=== PATIENT | male | born 1960 | race Caucasian/White ===

== ENCOUNTER 2022-01-12 19:32 | Inpatient (IN) | payer OTHER ==
[~2022-01-12] VITALS: Ht 175.3 cm; Wt 74.4 kg
[2022-01-12 19:35] VITALS: BP_SYST 161
--- NOTE | 2022-01-12 19:35 | NUR ---
BROUGHT IN BY [facility], PLACED IN BED #6 AND TRIAGED. REPORT GIVEN TO SUMA
--- NOTE | 2022-01-12 20:20 | NUR ---
MAI Hairston at bedside examining patient.
[2022-01-12] MEDS ORDERED: levETIRAcetam 1,000 MG in NS 90 ML IV ONE (20:30)
--- NOTE | 2022-01-12 20:41 | NUR ---
DR LOWE AT BESIDE INSERTING GTUBE.
--- NOTE | 2022-01-12 20:45 | NUR ---
MARTIN CATHETER WAS INSERTED ON PT, TOLERATED WELL. NO TRAUMA TO PENIS, NO BLEEDING. PROPER FLOW OF URINE NOTED.
[2022-01-12 21:07] LABS: BASOPHILS % (AUTO) 0.3 % (0.0-2.0); EOSINOPHILS # (AUTO) 0.2 K/uL (0.0-0.4); HEMATOCRIT 31.7 % (36-54); HEMOGLOBIN 10.6 g/dL (14.0-18.0); LYMPHOCYTES # (AUTO) 1.2 K/uL (1.0-5.5); LYMPHOCYTES % (AUTO) 13.5 % (20.5-51.5); MEAN CORPUSCULAR HEMOGLOBIN 32 pg (27-31); MEAN CORPUSCULAR HGB CONC 33 % (32-36); MEAN CORPUSCULAR VOLUME 95 fL (79.0-98.0); MONOCYTES # (AUTO) 0.6 K/uL (0.0-1.0); MONOCYTES % (AUTO) 6.6 % (1.7-9.3); NEUTROPHILS # (AUTO) 6.8 K/uL (1.8-7.7); NEUTROPHILS % (AUTO) 77.6 % (40.0-70.0); PLATELET COUNT (AUTO) 197 K/uL (130-430); RED BLOOD CELL COUNT(AUTO) 3.34 MIL/uL (4.2-6.2); RED CELL DISTRIBUTION WIDTH 15.2 % (9.0-15.0); WHITE BLOOD COUNT (AUTO) 8.7 K/uL (4.8-10.8)
[2022-01-12 21:23] LABS: CALCIUM 9.8 mg/dL (8.4-11.0); CREATININE 3.67 mg/dL (0.55-1.30)
--- NOTE | 2022-01-12 21:23 | NUR ---
CALLED [facility], SPOKE WITH SATNAM. INFORMED HER THAT G-TUBE SIZE 16 SINHALA NOT AVAILABLE AT THIS FACILITY. DR LOWE PLACED A TEMPORARY MARTIN CATHETER TO KEEP THE OPENING FROM CLOSING. I VERBALIZED IF PATIENT CAN RETURN TO THEIR FACILITY AND BE TRANSFERED OUT TOMORROW MORNING TO ANOTHER HOSPITAL. PER SATNAM WILL TALK TO NURSING SANDING MACHINE OPERATOR OR TENDER AND WILL CALL BACK WITH RESPONSE.
[2022-01-12 21:24] LABS: BILIRUBIN,URINE NEGATIVE (NEGATIVE); BLOOD, URINE 1+ (NEGATIVE); COLOR,URINE YELLOW (YELLOW); GLUCOSE,URINE NEGATIVE (NEGATIVE); KETONES,URINE NEGATIVE (NEGATIVE); LEUKOCYTE ESTERASE ,URINE 1+ (NEGATIVE); NITRITE, URINE NEGATIVE (NEGATIVE); PROTEIN URINE 2+ (NEGATIVE); UROBILINOGEN,URINE 0.2 (0.2-1.0)
[2022-01-12 21:26] LABS: CLARITY/URINE SLIGHTLY HAZY (CLEAR)
--- NOTE | 2022-01-12 21:34 | NUR ---
EVERETT CALLED BACK FROM [facility] STATED, OK TO SEND THE PT BACK. PER FACILITY REQUESTED TO LEAVE HEP LOCK IN PLACE SO MEDICATION CAN BE ADMINISTERED. DR LOWE AWARE OF SITUATION.
[2022-01-12 21:37] LABS: ALBUMIN 3.3 g/dL (3.4-4.8); TOTAL BILIRUBIN 0.5 mg/dL (0.0-1.0)
[2022-01-12] MEDS ORDERED: FAMO-132 PO (21:38)
[2022-01-12] MEDS ORDERED: PRED20TA PO (21:38)
[2022-01-12] MEDS ORDERED: EPIN0.3P3 IM (21:38)
[2022-01-12] MEDS ORDERED: BEN50 PO (21:38)
[2022-01-12] MEDS ORDERED: NACL 0.9% 1,000 ML IV ONE ×2 (22:00→23:45)
[2022-01-12] MEDS ORDERED: cefTRIAXone 1 GM IVPB PREMIX 50 ML IV ONE (22:00)
[2022-01-12 22:14] LABS: BACTERIA,URINE FEW /HPF (None Seen)
[2022-01-12 22:15] LABS: MUCUS,URINE 1+ /LPF (None Seen); YEAST,URINE Few /HPF (None Seen)
--- NOTE | 2022-01-12 23:40 | NUR ---
DR TERRELL CALLED TO GIVE ORDERS FOR PT VIA TELEPHONE. READ BACK AND VERBALIZED CORRECT ORDERS GIVEN.
[2022-01-12] MEDS ORDERED: LORazepam 2 MG/ML VIAL IVP PRN (23:45)
[2022-01-12] MEDS ORDERED: VANCOMYCIN HCL 1,000 MG in NS 250 ML IV ONE (23:45)
--- NOTE | 2022-01-12 23:47 | NUR ---
Note lisavladimir in EDM - 01/12/22 at 2357 by [email or web address] Admit bed requested Patient will be admitted to care of . Admitted to unit. Diagnosis Inpatient (Yes or No) Observation (Yes or No) Orientation concerns or request close to nursing station (Yes or No) Covid Status On vent or bipap Isolation requirements Needs a sitter From Home (Yes or if No enter name of facility) Requires Dialysis (Yes or No) Med Rec Completed (Yes of No)
--- NOTE | 2022-01-12 23:57 | NUR ---
Note lisavladimir in ED - 01/13/22 at 0016 by [email or web address] Admit bed requested Patient will be admitted to care of NIDHI Robins. Admitted to unit. Diagnosis Inpatient (Yes or No) Observation (Yes or No) Orientation concerns or request close to nursing station (Yes or No) Covid Status On vent or bipap Isolation requirements Needs a sitter From Home (Yes or if No enter name of facility) Requires Dialysis (Yes or No) Med Rec Completed (Yes of No)
[2022-01-13] VITALS (7 sets, daily range): BP systolic 100–142
--- NOTE | 2022-01-13 00:16 | NUR ---
Admit bed requested Patient will be admitted to care of NIDHI Gibson. Admitted to unit. Diagnosis TELEMETRY Inpatient (Yes or No) YES Observation (Yes or No) NO Orientation concerns or request close to nursing station (Yes or No) NO Covid Status NEGATIVE On vent or bipap NO Isolation requirements NO Needs a sitter NO From Home (Yes or if No enter name of facility) [facility] Requires Dialysis (Yes or No) YES Med Rec Completed (Yes of No) YES
--- NOTE | 2022-01-13 00:56 | NUR ---
PT WAS TRANSFERED TO BED 117A VIA BED TOLERATED WELL, PT AWAKE, NON VERBAL. PT ACCOMPANIED BY NURSE AND SHAKILA. JERMAN RN AT BEDSIDE TO TAKE REPORT. NO DISTRESS NOTED, IV FLUIDS RUNNING ON RIGHT WRIST.
--- NOTE | 2022-01-13 01:00 | NUR ---
ADMISSION NOTE Received patient from ER via gurney. Patient admitted with diagnosis of SEIZURES, UTI. Patient is awake, alert, oriented X 0. Patient oriented to hospital room, call light, toileting, pain management and safety-teach back done. Patient informed that that their room number is 124A. Personal belongings checked and Belongings List documented. Call light within reach.
[2022-01-13] MEDS ORDERED: VANCOMYCIN HCL 1000 MG/VIAL IV ONE (01:18)
[2022-01-13] MEDS ORDERED: ACET325T53 GT ×2 (01:52)
[2022-01-13] MEDS ORDERED: FOLI-43 GT (01:52)
[2022-01-13] MEDS ORDERED: NEPH GT (01:52)
[2022-01-13] MEDS ORDERED: DOCU250C75 GT (01:52)
[2022-01-13] MEDS ORDERED: ASPI-989 GT (01:52)
[2022-01-13] MEDS ORDERED: ALBU0.63 NEB (01:52)
[2022-01-13] MEDS ORDERED: SEVE800T8 GT (01:52)
[2022-01-13] MEDS ORDERED: LIP40 GT (01:52)
[2022-01-13] MEDS ORDERED: VITD2000 GT (01:52)
[2022-01-13] MEDS ORDERED: CARV3.1246 GT (01:52)
[2022-01-13] MEDS ORDERED: FER300L GT (01:52)
[2022-01-13] MEDS ORDERED: OMEP20CA15 GT (01:52)
[2022-01-13] MEDS ORDERED: LEVE100S GT (01:52)
--- NOTE | 2022-01-13 03:20 | NUR ---
Consultation Paged Reason for Consultation: UTI Was consult called: Y Person who was notified: [place] Consulting Physician: Rufino Still Ordering Physician: Dr. Olvera
--- NOTE | 2022-01-13 04:28 | NUR ---
Kept pt clean and dry.Repositioned pt.
--- NOTE | 2022-01-13 04:53 | NUR ---
Consultation Paged Reason for Consultation: Seizures Was consult called: Y Person who was notified: Dr. Luz through text messae Consulting Physician: Aris Dubois Ordering Physician: Dr. Olvera
--- NOTE | 2022-01-13 06:20 | NUR ---
ATTEMPTED TO CALL MD TERRELL TO GET AN ORDER FOR THE COVID PCR BUT NO ANSWER.LEFT A VOICEMAIL;AWAITING FOR CALL BACK.
[2022-01-13 08:00] LABS: BASOPHILS # (AUTO) 0.1 K/uL (0.0-0.2); BASOPHILS % (AUTO) 0.7 % (0.0-2.0); EOSINOPHILS # (AUTO) 0.2 K/uL (0.0-0.4); EOSINOPHILS % (AUTO) 2.3 % (0.0-4.0); HEMATOCRIT 30.8 % (36-54); HEMOGLOBIN 10.3 g/dL (14.0-18.0); LYMPHOCYTES # (AUTO) 1.4 K/uL (1.0-5.5); LYMPHOCYTES % (AUTO) 17.9 % (20.5-51.5); MEAN CORPUSCULAR HEMOGLOBIN 32 pg (27-31); MEAN CORPUSCULAR HGB CONC 33 % (32-36); MEAN CORPUSCULAR VOLUME 95 fL (79.0-98.0); MONOCYTES # (AUTO) 0.7 K/uL (0.0-1.0); NEUTROPHILS # (AUTO) 5.4 K/uL (1.8-7.7); NEUTROPHILS % (AUTO) 70.1 % (40.0-70.0); PLATELET COUNT (AUTO) 182 K/uL (130-430); RED BLOOD CELL COUNT(AUTO) 3.23 MIL/uL (4.2-6.2); RED CELL DISTRIBUTION WIDTH 15.4 % (9.0-15.0); WHITE BLOOD COUNT (AUTO) 7.6 K/uL (4.8-10.8)
--- NOTE | 2022-01-13 08:00 | NUR ---
OPENING NOTE Patient in bed resting, eyes open and alert but patient is nonverbal. No sign of distress or pain. Cm catheter in place draining yellow urine to gravity. Gtube site is left patent by temporary cm catheter placement. IV site is clean, dry, and intact. Patient supported by pillows. All needs met at this time and safety checks made.
[2022-01-13 08:38] LABS: CALCIUM 8.9 mg/dL (8.4-11.0); CREATININE 4.36 mg/dL (0.55-1.30)
[2022-01-13 08:44] LABS: ALBUMIN 3.1 g/dL (3.4-4.8); TOTAL BILIRUBIN 0.6 mg/dL (0.0-1.0)
[2022-01-13] MEDS ORDERED: cefTRIAXone 1 GM VIAL IM ONE (09:00)
--- NOTE | 2022-01-13 09:00 | NUR ---
COVID PCR PCR swab collected and taken to lab.
--- NOTE | 2022-01-13 10:36 | NUR ---
GTUBE PLACED Gtube replaced by Dr Vanessa at bedside. Patient tolerated well. Abdominal xray ordered to confirm placement.
--- NOTE | 2022-01-13 10:42 | NUR ---
BLACK STOOL Patient had a soft bowel movement, charcoal colored. Paged Dr Vanessa, spoke with Irena at the exchange. Addendum: 01/13/22 at 1056 by Lenka Caceres LVN Spoke with , new orders received.
[2022-01-13] MEDS ORDERED: FOLIC ACID 1 MG TABLET GT SCH (11:00)
[2022-01-13] MEDS ORDERED: CARVEDILOL 3.125 MG TABLET (COREG) GT ONE (11:00)
[2022-01-13] MEDS ORDERED: PANTOPRAZOLE SODIUM 40 MG/VIAL (PROTONIX) IVP ONE (11:00)
[2022-01-13] MEDS ORDERED: ACETAMINOPHEN 325 MG TABLET GT PRN ×2 (11:00)
[2022-01-13] MEDS ORDERED: OMEPRAZOLE Non-Formulary 20 MG CAPSULE.DR GT SCH (11:00)
[2022-01-13] MEDS ORDERED: ASPIRIN 325 MG TABLET GT ONE (11:00)
[2022-01-13] MEDS ORDERED: LevETIRAcetam 500 MG/5 ML UDC ORAL LIQUID GT ONE (11:00)
[2022-01-13] MEDS ORDERED: ALBUTEROL SULFATE 0.083% 2.5 MG/3 ML VIAL.NEB INH PRN (11:00)
[2022-01-13] MEDS ORDERED: ACETAMINOPHEN 325 MG TABLET GT SCH (11:00)
[2022-01-13] MEDS ORDERED: NEPHROVITE, (FOLIC ACID/VITAMIN B COMP W-C 1 TAB) GT ONE (11:00)
[2022-01-13] MEDS ORDERED: CHOLECALCIFEROL (VITAMIN D3) 2,000 UNIT TABLET GT ONE (11:00)
[2022-01-13] MEDS: SEVELAMER CARBONATE 800 MG TABLET GT SCH ×2 (12:00→17:21)
[2022-01-13] MEDS: cefTRIAXone 1 GM in D5W 50 ML IV SCH (12:38)
[2022-01-13] MEDS ORDERED: DIATR MEGLU/DIATRIZ SOD 30 ML SOLUTION PO ONE (13:26)
[2022-01-13] MEDS: FERROUS SULFATE 300 MG/5 ML UDC GT SCH ×2 (15:44→20:17)
--- NOTE | 2022-01-13 16:34 | NUR ---
ROUNDS Patient resting in bed, no sign of distress or pain. Patient's breathing is nonlabored and even on room air. Patient has been turned q2h to offload weight. All needs met at this time and safety checks made.
[2022-01-13] MEDS ORDERED: ASPIRIN 81 MG TAB.CHEW GT ONE (17:15)
--- NOTE | 2022-01-13 19:23 | NUR ---
CLOSING NOTE Patient in bed resting with eyes closed, no sign of distress or pain. Patient had a loose dark green bowel movement, cleaned and linen changed. While changing the patient, the IV access became dislodged; oncoming nurse is aware that it will need to be replaced. Breathing is nonlabored and even on room air. Patient's temperature has been trending down after receiving tylenol, most recent temperature 98.6. All needs met at this time and safety checks made. Endorsed to shift foreman nurse.
[2022-01-13] MEDS: DOCUSATE SODIUM 100 MG/10 ML UDC GT SCH (20:16)
[2022-01-13] MEDS: LevETIRAcetam 500 MG/5 ML UDC ORAL LIQUID GT SCH (20:17)
[2022-01-13] MEDS: PANTOPRAZOLE SODIUM 40 MG/VIAL (PROTONIX) IVP SCH (20:17)
[2022-01-13] MEDS: CARVEDILOL 3.125 MG TABLET (COREG) GT SCH (20:18)
[2022-01-13] MEDS: ATORVASTATIN 20 MG TABLET GT SCH (20:18)
--- NOTE | 2022-01-13 22:57 | NUR ---
Patient in bed. HOB elevated. No acute distress noted. Gtube patent and intact. Feeding started. No residual noted.Turned repositioned q2. Will continue to monitor.
[2022-01-14] VITALS: BP_SYST 141
[2022-01-14] MEDS: FERROUS SULFATE 300 MG/5 ML UDC GT SCH ×3 (04:04→20:31)
[2022-01-14 07:16] LABS: BASOPHILS % (AUTO) 0.6 % (0.0-2.0); EOSINOPHILS # (AUTO) 0.2 K/uL (0.0-0.4); EOSINOPHILS % (AUTO) 2.2 % (0.0-4.0); HEMATOCRIT 31.2 % (36-54); HEMOGLOBIN 10.5 g/dL (14.0-18.0); LYMPHOCYTES # (AUTO) 1.2 K/uL (1.0-5.5); LYMPHOCYTES % (AUTO) 16.3 % (20.5-51.5); MEAN CORPUSCULAR HEMOGLOBIN 32 pg (27-31); MEAN CORPUSCULAR HGB CONC 34 % (32-36); MEAN CORPUSCULAR VOLUME 95 fL (79.0-98.0); MONOCYTES # (AUTO) 0.6 K/uL (0.0-1.0); MONOCYTES % (AUTO) 8.7 % (1.7-9.3); NEUTROPHILS # (AUTO) 5.1 K/uL (1.8-7.7); NEUTROPHILS % (AUTO) 72.2 % (40.0-70.0); PLATELET COUNT (AUTO) 196 K/uL (130-430); RED BLOOD CELL COUNT(AUTO) 3.27 MIL/uL (4.2-6.2); RED CELL DISTRIBUTION WIDTH 15.3 % (9.0-15.0); WHITE BLOOD COUNT (AUTO) 7.1 K/uL (4.8-10.8)
[2022-01-14 07:57] LABS: CALCIUM 10.1 mg/dL (8.4-11.0); CREATININE 6.24 mg/dL (0.55-1.30)
[2022-01-14 08:00] VITALS: BP_SYST 118
--- NOTE | 2022-01-14 08:00 | NUR ---
Initial Notes Patient is AOx0. Nonverbal. No ss of distress noted. NO facial grimace noted. Breathing is even and nonlabored, on room air. Vital signs obtained, as documented. NO SOB noted. F/c draining by gravity. GT feeding running. HOB elevated. Bed is locked, alarm on, and at lowest position. call light within reach.
[2022-01-14] MEDS: DOCUSATE SODIUM 100 MG/10 ML UDC GT SCH ×2 (09:58→20:32)
[2022-01-14] MEDS: NEPHROVITE, (FOLIC ACID/VITAMIN B COMP W-C 1 TAB) GT SCH (09:59)
[2022-01-14] MEDS: CHOLECALCIFEROL (VITAMIN D3) 2,000 UNIT TABLET GT SCH (09:59)
[2022-01-14] MEDS: ASPIRIN 81 MG TAB.CHEW GT SCH (10:00)
[2022-01-14] MEDS: SEVELAMER CARBONATE 800 MG TABLET GT SCH ×3 (10:00→18:58)
[2022-01-14] MEDS: CARVEDILOL 3.125 MG TABLET (COREG) GT SCH ×2 (10:00→20:32)
[2022-01-14] MEDS: LevETIRAcetam 500 MG/5 ML UDC ORAL LIQUID GT SCH ×2 (10:13→20:32)
[2022-01-14 11:45] VITALS: BP_SYST 123
--- NOTE | 2022-01-14 12:16 | NUR ---
Notes Patient is resting, eyes closed. Aroused to name. No ss of distress noted. No facial grimace noted. New IV 22 G L FA. Seizure precautions in place, bed padded. Bed locked, alarm on, at lowest position. Call light within reach.
[2022-01-14] MEDS: cefTRIAXone 1 GM in D5W 50 ML IV SCH (12:17)
[2022-01-14] MEDS: PANTOPRAZOLE SODIUM 40 MG/VIAL (PROTONIX) IVP SCH ×2 (12:17→20:31)
--- NOTE | 2022-01-14 16:00 | NUR ---
Notes Patient has reposition and cleaned. Linens were changed, patient had bowel mvmt. Patient is a comfortable position. HOB elevated. GT feeding on. F/ C draining by gravity. Safety precautions in place and call light within reach.
[2022-01-14 16:25] VITALS: BP_SYST 114
--- NOTE | 2022-01-14 19:45 | NUR ---
Closing Notes Patient is resting, eyes closed. No ss of distress noted. No facial grimace noted. Patient is stable. HOB elevated, GT feeding running. Iv patent. F/ C draining by gravity. All needs met. Patient is stable. Bed is locked, alarm on, and at lowest position. Seizure precautions in place, bed side rails are padded. Call light within reach. Report given to SHAAN Costa.
[2022-01-14 20:00] VITALS: BP_SYST 125
[2022-01-14] MEDS: ATORVASTATIN 20 MG TABLET GT SCH (20:31)
--- NOTE | 2022-01-14 23:36 | NUR ---
Patient in bed. No acute distress noted. Turned repositioned q2. HOB elevated. Gtube intact. No residual noted.Will continue to monitor.
[2022-01-15 00:48] VITALS: BP_SYST 136
[2022-01-15] MEDS: FERROUS SULFATE 300 MG/5 ML UDC GT SCH ×3 (04:03→22:15)
[2022-01-15 08:00] VITALS: BP_SYST 123
--- NOTE | 2022-01-15 08:00 | NUR ---
Initial Note Patient is AOx0. Nonverbal. No ss of distress noted. Breathing is even and nonlabored, on room air. Obtained vital signs, as documented. No SOB noted. No facial grimace noted at this time. Patient has GT. HOB elevated. Auscultated for placement. Air bubbles heard. GT feeding running. IV patent. F/c draining by gravity. Bed is locked, alarm on, and at lowest position. Bed side rails are padded, seizure precautions in place. Call light within reach.
[2022-01-15] MEDS: LevETIRAcetam 500 MG/5 ML UDC ORAL LIQUID GT SCH ×2 (08:58→22:15)
[2022-01-15] MEDS: DOCUSATE SODIUM 100 MG/10 ML UDC GT SCH ×2 (08:58→22:15)
[2022-01-15] MEDS: SEVELAMER CARBONATE 800 MG TABLET GT SCH ×3 (08:59→18:08)
[2022-01-15] MEDS: CARVEDILOL 3.125 MG TABLET (COREG) GT SCH ×2 (08:59→22:15)
[2022-01-15] MEDS: CHOLECALCIFEROL (VITAMIN D3) 2,000 UNIT TABLET GT SCH (09:00)
[2022-01-15] MEDS: NEPHROVITE, (FOLIC ACID/VITAMIN B COMP W-C 1 TAB) GT SCH (09:00)
[2022-01-15] MEDS: ASPIRIN 81 MG TAB.CHEW GT SCH (09:00)
[2022-01-15] MEDS: PANTOPRAZOLE SODIUM 40 MG/VIAL (PROTONIX) IVP SCH ×2 (09:57→22:14)
--- NOTE | 2022-01-15 11:03 | NUR ---
CONSULTATION PAGED/CALLED Reason for Consultation: SAMMY Person Who was Notified: Spoke with Joseph Consulting Physician: Juventino. Not customer service consultant. DR. GUTIERREZ [employer] OWNER. PAGED DR. GUTIERREZ [employer] Worker Specialty: nephrology Ordering Physician: Wade
[2022-01-15] MEDS: cefTRIAXone 1 GM in D5W 50 ML IV SCH (11:41)
[2022-01-15 11:44] LABS: WHITE BLOOD COUNT (AUTO) 9.6 K/uL (4.8-10.8)
[2022-01-15 11:45] LABS: BASOPHILS % (AUTO) 0.3 % (0.0-2.0); EOSINOPHILS # (AUTO) 0.3 K/uL (0.0-0.4); HEMATOCRIT 31.2 % (36-54); LYMPHOCYTES # (AUTO) 1.3 K/uL (1.0-5.5); LYMPHOCYTES % (AUTO) 13.5 % (20.5-51.5); MEAN CORPUSCULAR HEMOGLOBIN 31 pg (27-31); MEAN CORPUSCULAR HGB CONC 32 % (32-36); MEAN CORPUSCULAR VOLUME 99 fL (79.0-98.0); MONOCYTES # (AUTO) 0.6 K/uL (0.0-1.0); MONOCYTES % (AUTO) 6.5 % (1.7-9.3); NEUTROPHILS # (AUTO) 7.3 K/uL (1.8-7.7); NEUTROPHILS % (AUTO) 76.4 % (40.0-70.0); PLATELET COUNT (AUTO) 180 K/uL (130-430); RED BLOOD CELL COUNT(AUTO) 3.17 MIL/uL (4.2-6.2); RED CELL DISTRIBUTION WIDTH 15.2 % (9.0-15.0)
[2022-01-15 11:54] LABS: CALCIUM 9.7 mg/dL (8.4-11.0); CREATININE 7.4 mg/dL (0.55-1.30); TOTAL BILIRUBIN 0.4 mg/dL (0.0-1.0)
[2022-01-15 12:00] VITALS: BP_SYST 118
--- NOTE | 2022-01-15 12:24 | NUR ---
Notes Patient is resting. No ss of distress noted. No facial grimace noted. Vital signs obtained, as documented. Patient has been cleaned and repositioned. Linens changed. HOB elevated. GT feeding running. F/c draining by gravity. Safety and seizure precautions in place. Call light within reach.
--- NOTE | 2022-01-15 13:24 | NUR ---
HD Hemodialysis started. HD nurse at bedside. Consents signed.
[2022-01-15] MEDS: ALTEPLASE 2 MG VIAL MC ONE ×2 (15:48→16:02)
[2022-01-15 16:00] VITALS: BP_SYST 87
--- NOTE | 2022-01-15 16:49 | NUR ---
HD Hemodialysis ended, 2.5 L output. Patient is stable. No distress noted. Breathing is even and nonlabored. GT feeding on. HOB elevated. Safety precautions in place and call light within reach.
--- NOTE | 2022-01-15 18:54 | NUR ---
Closing Notes Patient is resting, eyes closed. Patient is comfortable. HOB elevated. GT feeding running. No ss of distress noted. Breathing is even and nonlabored, on room air. No facial grimace noted. IV patent. F/c draining by gravity. Patient is stable. All needs met. Bed is locked, alarm on, and at lowest position. Call light within reach.
[2022-01-15 20:00] VITALS: BP_SYST 123
[2022-01-15] MEDS: ATORVASTATIN 20 MG TABLET GT SCH (22:14)
[2022-01-16] VITALS: BP_SYST 104
[2022-01-16] MEDS: FERROUS SULFATE 300 MG/5 ML UDC GT SCH ×3 (05:39→22:50)
--- NOTE | 2022-01-16 07:21 | NUR ---
report GIVEN TO NURSE LETICIA
[2022-01-16 08:00] VITALS: BP_SYST 109
--- NOTE | 2022-01-16 08:00 | NUR ---
Initial Notes Patient is resting, eyes open. Nonverbal. No ss of distress noted. Breathing is even and nonlabored, on room air. Vital signs obtained, as documented. No facial grimace noted. HOB elevated. GT feeding running. IV patent. F/c draining by gravity. Bed is locked, alarm on, and at lowest position. Side rails padded. Seizure precautions in place. Call light within reach.
[2022-01-16 08:01] LABS: ALBUMIN 3.2 g/dL (3.4-4.8); CREATININE 5.48 mg/dL (0.55-1.30); TOTAL BILIRUBIN 0.5 mg/dL (0.0-1.0)
[2022-01-16 08:20] LABS: BASOPHILS % (AUTO) 0.3 % (0.0-2.0); EOSINOPHILS # (AUTO) 0.3 K/uL (0.0-0.4); EOSINOPHILS % (AUTO) 3.3 % (0.0-4.0); HEMATOCRIT 31.2 % (36-54); HEMOGLOBIN 10.4 g/dL (14.0-18.0); LYMPHOCYTES # (AUTO) 1.5 K/uL (1.0-5.5); LYMPHOCYTES % (AUTO) 14.7 % (20.5-51.5); MEAN CORPUSCULAR HEMOGLOBIN 32 pg (27-31); MEAN CORPUSCULAR HGB CONC 33 % (32-36); MEAN CORPUSCULAR VOLUME 96 fL (79.0-98.0); MONOCYTES # (AUTO) 0.7 K/uL (0.0-1.0); NEUTROPHILS # (AUTO) 7.4 K/uL (1.8-7.7); NEUTROPHILS % (AUTO) 74.7 % (40.0-70.0); PLATELET COUNT (AUTO) 196 K/uL (130-430); RED BLOOD CELL COUNT(AUTO) 3.25 MIL/uL (4.2-6.2); RED CELL DISTRIBUTION WIDTH 15.2 % (9.0-15.0); WHITE BLOOD COUNT (AUTO) 9.9 K/uL (4.8-10.8)
[2022-01-16 08:49] LABS: CALCIUM 10.8 mg/dL (8.4-11.0)
[2022-01-16] MEDS: CHOLECALCIFEROL (VITAMIN D3) 2,000 UNIT TABLET GT SCH (08:59)
[2022-01-16] MEDS: LevETIRAcetam 500 MG/5 ML UDC ORAL LIQUID GT SCH ×2 (08:59→22:52)
[2022-01-16] MEDS: SEVELAMER CARBONATE 800 MG TABLET GT SCH ×3 (08:59→17:12)
[2022-01-16] MEDS: ASPIRIN 81 MG TAB.CHEW GT SCH (08:59)
[2022-01-16] MEDS: DOCUSATE SODIUM 100 MG/10 ML UDC GT SCH ×2 (08:59→22:51)
[2022-01-16] MEDS: NEPHROVITE, (FOLIC ACID/VITAMIN B COMP W-C 1 TAB) GT SCH (09:00)
[2022-01-16] MEDS: CARVEDILOL 3.125 MG TABLET (COREG) GT SCH ×2 (09:00→21:00)
--- NOTE | 2022-01-16 09:11 | NUR ---
NOTES AUSCULTATED FOR GT PLACEMENT, AIR BUBBLES HEARD. NO RESIDUAL. GT FEEDING RUNNING. HOB ELEVATED. NO SS OF DISTRESS NOTED. NO FACIAL GRIMACE NOTED. BED IS LOCKED, ALARM ON, AND AT LOWEST POSITION. SEIZURE PRECAUTIONS IN PLACE. CALL LIGHT WITHIN REACH.
[2022-01-16] MEDS: PANTOPRAZOLE SODIUM 40 MG/VIAL (PROTONIX) IVP SCH ×2 (09:40→22:50)
[2022-01-16] MEDS: cefTRIAXone 1 GM in D5W 50 ML IV SCH (11:19)
--- NOTE | 2022-01-16 11:32 | NUR ---
Dietitian Recommendations * Continue Nepro @ 50mL/hr Provides: 2160 kcal, 97g pro, 872 mL free water Meets: 99% of lower kcal, 102% pro needs * Update diet order to reflect current TF diet (It says "run fo 16 hrs only" * Refer to for Free water flush GS, MPH, RD Please refer to RD Assessment for more details Addendum: 01/16/22 at [address] Amended: Links added.
[2022-01-16 11:47] VITALS: BP_SYST 100
--- NOTE | 2022-01-16 12:00 | NUR ---
Notes Patient has been cleaned and repositioned. No ss of distress noted. Breathing is even and nonlabored, on room air. GT feeding running, HOB elevated. Safety and seizure precautions in place. Call light within reach.
[2022-01-16 17:00] VITALS: BP_SYST 103
--- NOTE | 2022-01-16 17:20 | NUR ---
NOTES WOUND CARE TO RIGHT THIGH DONE. NO SS OF DISTRESS NOTED. NO FACIAL GRIMACE. SAFETY PRECAUTIONS IN PLACE AND CALL LIGHT WITHIN REACH. Addendum: 01/16/22 at 1920 by Zora Quesada LVN NOTES WOUND CARE TO RIGHT THIGH DONE. SMALL AMOUNT OF YELLOW DRAINAGE NOTED. NO SS OF DISTRESS NOTED. NO FACIAL GRIMACE. SAFETY PRECAUTIONS IN PLACE AND CALL LIGHT WITHIN REACH.
--- NOTE | 2022-01-16 19:20 | NUR ---
CLOSING NOTES PATIENT IS RESTING, EYES CLOSED. NO SS OF DISTRESS NOTED. NO FACIAL GRIMACE NOTED. NO SOB. BREATHING IS EVEN AND NONLABORED, ON ROOM AIR. HOB ELEVATED. GT FEEDING RUNNING. F/C DRAINING BY GRAVITY. IV PATENT. PATIENT IS STABLE. ALL NEEDS MET. BED IS LOCKED, ALARM ON, AND AT LOWEST POSITION. SIDE RAILS PADDED. CALL LIGHT WITHIN REACH. REPORT GIVEN TO SHAAN HAY.
[2022-01-16 20:00] VITALS: BP_SYST 95
[2022-01-16] MEDS: ATORVASTATIN 20 MG TABLET GT SCH (22:51)
[2022-01-17] VITALS: BP_SYST 120
[2022-01-17] MEDS: FERROUS SULFATE 300 MG/5 ML UDC GT SCH ×3 (05:23→21:14)
--- NOTE | 2022-01-17 07:30 | NUR ---
REPORT GIVEN TO SHAAN JADE
[2022-01-17 08:00] VITALS: BP_SYST 114
--- NOTE | 2022-01-17 08:00 | NUR ---
Initial notes Patient sleeping, arouse by stimuli, nonverbal, no sign of distress/pain or SOB, breathing even and unlabored. G-tube feeding running at 50ml/hr. IV saline lock patent, no signs of infiltration. Lindsay catheter intact draining to gravity. All safety precaution secure, will continue to monitor.
[2022-01-17] MEDS: PANTOPRAZOLE SODIUM 40 MG/VIAL (PROTONIX) IVP SCH ×2 (08:12→20:53)
[2022-01-17] MEDS: ASPIRIN 81 MG TAB.CHEW GT SCH (08:13)
[2022-01-17] MEDS: DOCUSATE SODIUM 100 MG/10 ML UDC GT SCH ×2 (08:13→21:00)
[2022-01-17] MEDS: NEPHROVITE, (FOLIC ACID/VITAMIN B COMP W-C 1 TAB) GT SCH (08:13)
[2022-01-17] MEDS: CHOLECALCIFEROL (VITAMIN D3) 2,000 UNIT TABLET GT SCH (08:13)
[2022-01-17] MEDS: SEVELAMER CARBONATE 800 MG TABLET GT SCH ×3 (08:13→19:38)
[2022-01-17] MEDS: CARVEDILOL 3.125 MG TABLET (COREG) GT SCH ×2 (08:14→21:00)
[2022-01-17] MEDS: LevETIRAcetam 500 MG/5 ML UDC ORAL LIQUID GT SCH ×2 (08:16→20:40)
[2022-01-17 08:26] LABS: CALCIUM 10.3 mg/dL (8.4-11.0); CREATININE 7.35 mg/dL (0.55-1.30); PHOSPHORUS 4.1 mg/dL (2.7-4.5)
--- NOTE | 2022-01-17 10:45 | NUR ---
Discharge Planning: DCP [phone] DCP to follow up
[2022-01-17 11:20] VITALS: BP_SYST 111
[2022-01-17] MEDS: cefTRIAXone 1 GM in D5W 50 ML IV SCH (11:21)
--- NOTE | 2022-01-17 12:00 | NUR ---
Rounding Reposition every 2 hours, no signs of distress
[2022-01-17 17:38] VITALS: BP_SYST 97
--- NOTE | 2022-01-17 18:15 | NUR ---
Per dialysis nurse 2L output
--- NOTE | 2022-01-17 19:07 | NUR ---
Closing notes No change in condition,no signs pain or SOB, vital signs w/in normal, maintained safety precaution throughout my shift, will endorse to oncoming nurse.
[2022-01-17 20:00] VITALS: BP_SYST 84
[2022-01-17] MEDS: ATORVASTATIN 20 MG TABLET GT SCH (20:49)
[2022-01-17] MEDS ORDERED: ALBUMIN HUMAN 25% 50 ML IV ONE (22:00)
[2022-01-17] MEDS ORDERED: ADENOSINE 6MG/2ML VIAL IVP ONE ×2 (22:30→22:45)
[2022-01-17] MEDS ORDERED: ADENOSINE 6MG/2ML VIAL ONE (22:38)
[2022-01-18] VITALS: BP_SYST 104
--- NOTE | 2022-01-18 00:33 | NUR ---
MID-SHIFT NOTE: PT S/P HD W 2L OUT ON 01/17/22. DURING SHIFT PT HR WOULD JUMP UP TO 190'S FOR SHORT WHILE THEN DROP BACK DOWN TO LOW 100'S. PT'S BP FOUND TO BE 84/60 (RA) AND DR. TERRELL NOTIFIED. PT ALREADY GIVEN 1MG IVP ATIVAN. DR. TERRELL ORDERED: -ALBUMIN 25% 50ML RECEIVED AND GIVEN. - -DR GARAY (CONSULT AND NOTIFIED) FOR- CARDIO CONSULT. -DR GOMEZ (ALREADY ON CASE) NOTIFIED WELL. -BLOOD CULTURES X 2 STAT ORDERED AND DRAWN MINUTES LATER. -ADENOSINE IVP ORDERED - HELD D/T PULSE RESOLVED TO 101 AND STEADY. -ALSO ORDERED: PT TO BE TRANSFERRED TO ICU SHOULD PT CONDITION NOT BE CORRECTED. INCONTINENCE CARE ALSO PROVIDED. VS AT 0030: BP104/64, T98.8, HR95, O2 SAT 100%, RR 18.
[2022-01-18 04:00] VITALS: BP_SYST 101
[2022-01-18] MEDS: FERROUS SULFATE 300 MG/5 ML UDC GT SCH ×3 (06:11→22:49)
[2022-01-18 06:59] LABS: BASOPHILS % (AUTO) 0.4 % (0.0-2.0); EOSINOPHILS # (AUTO) 0.3 K/uL (0.0-0.4); EOSINOPHILS % (AUTO) 3.1 % (0.0-4.0); HEMATOCRIT 31.5 % (36-54); HEMOGLOBIN 10.6 g/dL (14.0-18.0); LYMPHOCYTES # (AUTO) 1.6 K/uL (1.0-5.5); LYMPHOCYTES % (AUTO) 17.4 % (20.5-51.5); MEAN CORPUSCULAR HEMOGLOBIN 32 pg (27-31); MEAN CORPUSCULAR HGB CONC 34 % (32-36); MEAN CORPUSCULAR VOLUME 95 fL (79.0-98.0); MONOCYTES # (AUTO) 0.8 K/uL (0.0-1.0); MONOCYTES % (AUTO) 8.1 % (1.7-9.3); NEUTROPHILS # (AUTO) 6.6 K/uL (1.8-7.7); PLATELET COUNT (AUTO) 196 K/uL (130-430); WHITE BLOOD COUNT (AUTO) 9.3 K/uL (4.8-10.8)
[2022-01-18 07:16] LABS: CREATININE 5.48 mg/dL (0.55-1.30)
[2022-01-18 08:30] VITALS: BP_SYST 100
[2022-01-18] MEDS: CARVEDILOL 3.125 MG TABLET (COREG) GT SCH ×2 (09:00→21:02)
[2022-01-18] MEDS: ASPIRIN 81 MG TAB.CHEW GT SCH (09:29)
[2022-01-18] MEDS: CHOLECALCIFEROL (VITAMIN D3) 2,000 UNIT TABLET GT SCH (09:29)
[2022-01-18] MEDS: SEVELAMER CARBONATE 800 MG TABLET GT SCH ×3 (09:29→17:15)
[2022-01-18] MEDS: NEPHROVITE, (FOLIC ACID/VITAMIN B COMP W-C 1 TAB) GT SCH (09:29)
[2022-01-18] MEDS: LevETIRAcetam 500 MG/5 ML UDC ORAL LIQUID GT SCH ×2 (09:30→21:03)
[2022-01-18] MEDS: DOCUSATE SODIUM 100 MG/10 ML UDC GT SCH ×2 (09:32→21:04)
[2022-01-18] MEDS: PANTOPRAZOLE SODIUM 40 MG/VIAL (PROTONIX) IVP SCH ×2 (09:33→21:01)
[2022-01-18 11:42] VITALS: BP_SYST 113
--- NOTE | 2022-01-18 13:15 | NUR ---
New IV to left hand #20g, IV to left forearm infiltrate with catheter intact.
[2022-01-18] MEDS: cefTRIAXone 1 GM in D5W 50 ML IV SCH (13:30)
[2022-01-18 17:07] VITALS: BP_SYST 116
--- NOTE | 2022-01-18 19:16 | NUR ---
Closing notes No change in condition,no signs pain or SOB, vital signs w/in normal, maintained safety precaution throughout my shift, will endorse to oncoming nurse.
[2022-01-18 20:00] VITALS: BP_SYST 114
[2022-01-18] MEDS: ATORVASTATIN 20 MG TABLET GT SCH (21:03)
[2022-01-19] VITALS: BP_SYST 108
[2022-01-19] MEDS: FERROUS SULFATE 300 MG/5 ML UDC GT SCH ×2 (05:58→14:00)
--- NOTE | 2022-01-19 06:46 | NUR ---
Patient in bed resting, tolerated all medications during this shift, feeding stopped at 2200 and restarted at 0600 as directed. Patient had no s/s of pain or distress noted at this time. Patient VSS.
--- NOTE | 2022-01-19 07:00 | NUR ---
Report received from night shift manager RN for continuity of care. Patient stable.
[2022-01-19 07:09] LABS: CALCIUM 11.3 mg/dL (8.4-11.0); CREATININE 6.99 mg/dL (0.55-1.30)
[2022-01-19 08:00] VITALS: BP_SYST 100
--- NOTE | 2022-01-19 08:41 | NUR ---
Discharge Planning: MELLYP arranged transport with [facility] [phone] S 11:30am to [facility] [phone] DCP made CM and patient packet taken to nurse station. Addendum: 01/19/22 at 1530 by Merle Tellez DP Discharge Planning: MICHAEL arranged transport with [facility] [phone] BLS 7:00pm requested conf#[id number] to [facility] [phone]
[2022-01-19] MEDS: CARVEDILOL 3.125 MG TABLET (COREG) GT SCH (09:46)
[2022-01-19] MEDS: PANTOPRAZOLE SODIUM 40 MG/VIAL (PROTONIX) IVP SCH (09:46)
[2022-01-19] MEDS: SEVELAMER CARBONATE 800 MG TABLET GT SCH ×2 (09:47→12:00)
[2022-01-19] MEDS: NEPHROVITE, (FOLIC ACID/VITAMIN B COMP W-C 1 TAB) GT SCH (09:47)
[2022-01-19] MEDS: DOCUSATE SODIUM 100 MG/10 ML UDC GT SCH (09:47)
[2022-01-19] MEDS: ASPIRIN 81 MG TAB.CHEW GT SCH (09:47)
[2022-01-19] MEDS: LevETIRAcetam 500 MG/5 ML UDC ORAL LIQUID GT SCH (09:55)
[2022-01-19] MEDS: CHOLECALCIFEROL (VITAMIN D3) 2,000 UNIT TABLET GT SCH (09:55)
[2022-01-19] MEDS: cefTRIAXone 1 GM in D5W 50 ML IV SCH (11:00)
[2022-01-19 11:46] VITALS: BP_SYST 110; BP_SYST 134
--- NOTE | 2022-01-19 15:06 | NUR ---
Patient undergoing dialysis.
[2022-01-19] MEDS ORDERED: ALBUMIN HUMAN 25% 100 ML IV ONE (15:42)
[2022-01-19] MEDS ORDERED: ALBUMIN HUMAN 25% 50 ML IV ONE (16:30)
[2022-01-19 16:43] VITALS: BP_SYST 97
--- NOTE | 2022-01-19 17:30 | NUR ---
Dialysis finished. 2.2 L out.
--- NOTE | 2022-01-19 17:49 | NUR ---
BP and vitals stable.
[2022-01-19 17:50] VITALS: BP_SYST 99
--- NOTE | 2022-01-19 17:54 | NUR ---
[facility] Told patient's family as well. Patient to be transferred via ambulance at 7 pm
--- NOTE | 2022-01-19 19:02 | NUR ---
Report given to molder pipe covering RN for continuity of care. Patient stable condition.
--- NOTE | 2022-01-19 19:41 | NUR ---
Patient ready for discharge. All paperwork given to ambulance. No distress noted. Patient disconnected from Feeding. IV out. Patient belongings with patient. Facility ready to accept patient. All paperwork given. Family member Nilo made aware of discharge.
== END 2022-01-19 20:08 | DRG 252 ==
LOC: SED 19:32 → STU 01-13 00:32
PROVIDERS: ADMIT Internal Medicine; ATTEND Internal Medicine
PROC: 0DH63UZ Insertion of Feeding Device into Stomach, Percutaneous Approach (ICD-10-PCS; principal; 2022-01-12)
PROC: 0D20XUZ Change Feeding Device in Upper Intestinal Tract, External Approach (ICD-10-PCS; 2022-01-13)
PROC: 5A1D70Z Performance of Urinary Filtration, Intermittent, Less than 6 Hours Per Day (ICD-10-PCS; 2022-01-15)
PROC: 5A1D70Z Performance of Urinary Filtration, Intermittent, Less than 6 Hours Per Day (ICD-10-PCS; 2022-01-17)
PROC: 5A1D70Z Performance of Urinary Filtration, Intermittent, Less than 6 Hours Per Day (ICD-10-PCS; 2022-01-19)
DX: K94.23 Gastrostomy malfunction (principal); G82.50 Quadriplegia, unspecified; E44.1 Mild protein-calorie malnutrition; I12.0 Hypertensive chronic kidney disease with stage 5 chronic kidney disease or end stage renal disease; R47.01 Aphasia; G40.909 Epilepsy, unspecified, not intractable, without status epilepticus; D64.9 Anemia, unspecified; N39.0 Urinary tract infection, site not specified; E78.5 Hyperlipidemia, unspecified; Y83.8 Other surgical procedures as the cause of abnormal reaction of the patient, or of later complication, without mention of misadventure at the time of the procedure; R13.10 Dysphagia, unspecified; Z20.822 Contact with and (suspected) exposure to COVID-19; N18.6 End stage renal disease; Y82.8 Other medical devices associated with adverse incidents; Z74.01 Bed confinement status; Z79.899 Other long term (current) drug therapy; Z99.2 Dependence on renal dialysis; Z86.73 Personal history of transient ischemic attack (TIA), and cerebral infarction without residual deficits; Y92.89 Other specified places as the place of occurrence of the external cause; Z68.24 Body mass index [BMI] 24.0-24.9, adult
CPT/HCPCS: 36415; 71045; 74018; 74240-TC; 80048; 80053; 81000; 83605; 84100; 85025; 87040; 87081; 87086; 90935; 90937; 96365; 96367; 99285; C9113; G0378; J0153; J0696; J1953; J2060; J2997; J3370; J7030; J7040; J7050; J7060; P9046; Q9964; U0003